=== PATIENT | female | born 1945 | race Asian ===

== ENCOUNTER → 2016-09-08 | Outpatient (CLI) | payer MEDICARE, OTHER | END | disposition home or self-care (01) | LOC: RADPV 09:55 | PROVIDERS: ATTEND Physician Assistant | DX: M19.011 Primary osteoarthritis, right shoulder (principal); M53.86 Other specified dorsopathies, lumbar region; M41.86 Other forms of scoliosis, lumbar region; M79.89 Other specified soft tissue disorders; M25.511 Pain in right shoulder | CPT/HCPCS: 72100 ==

== ENCOUNTER → 2016-09-23 | Outpatient (CLI) | payer MEDICARE, OTHER | END | disposition home or self-care (01) | LOC: RADMN 09:00 | PROVIDERS: ATTEND Physician Assistant | DX: M75.101 Unspecified rotator cuff tear or rupture of right shoulder, not specified as traumatic (principal); M89.311 Hypertrophy of bone, right shoulder | CPT/HCPCS: 73221 ==